=== PATIENT | male | born 1990 | race Two or more races ===

== ENCOUNTER 2017-11-03 12:01 | Emergency (ER) | payer OTHER ==
[~2017-11-03] VITALS: Ht 170.2 cm; Wt 76.2 kg
[2017-11-03 12:01] VITALS: BP 141/75
--- NOTE | 2017-11-03 12:01 | NUR ---
HEADACHE, DIZZINESS, NAUSEA THIS AM, S/P HITTING HEAD ON LOCKER YESTERDAY
[2017-11-03] MEDS ORDERED: ONDANSETRON 4 MG TAB.RAPDIS ONE (12:58)
[2017-11-03] MEDS ORDERED: ONDANSETRON 4 MG TAB.RAPDIS PO ONE (13:00)
[2017-11-03] MEDS ORDERED: IBUPROFEN 600 MG TABLET PO ONE ×2 (14:05→14:30)
== END 2017-11-03 14:08 | disposition home or self-care (01) ==
LOC: ER 12:02
DX: S00.01XA Abrasion of scalp, initial encounter (principal); S09.8XXA Other specified injuries of head, initial encounter; Z88.2 Allergy status to sulfonamides; W22.8XXA Striking against or struck by other objects, initial encounter; Y93.89 Activity, other specified; Y92.39 Other specified sports and athletic area as the place of occurrence of the external cause; Y99.8 Other external cause status
CPT/HCPCS: A4606; Q0162; Z7610

== ENCOUNTER 2017-11-07 16:43 | Emergency (ER) | payer OTHER ==
[~2017-11-07] VITALS: Ht 170.2 cm; Wt 74.8 kg
[2017-11-07 16:43] VITALS: BP 123/71
== END 2017-11-07 18:44 | disposition home or self-care (01) ==
LOC: ER 16:45
DX: S06.0X0A Concussion without loss of consciousness, initial encounter (principal); Z88.2 Allergy status to sulfonamides; W22.8XXA Striking against or struck by other objects, initial encounter; Y93.89 Activity, other specified; Y92.89 Other specified places as the place of occurrence of the external cause; Y99.8 Other external cause status
CPT/HCPCS: 70450; 99284; A4606; Z7610

== ENCOUNTER 2017-11-09 12:24 | Emergency (ER) | payer OTHER ==
[~2017-11-09] VITALS: Ht 170.2 cm; Wt 74.8 kg
[2017-11-09 12:24] VITALS: BP 114/66
== END 2017-11-09 13:19 | disposition home or self-care (01) ==
LOC: ER 12:25
DX: F07.81 Postconcussional syndrome (principal); F41.0 Panic disorder [episodic paroxysmal anxiety]; F10.10 Alcohol abuse, uncomplicated; Z88.2 Allergy status to sulfonamides
CPT/HCPCS: A4606; Z7610